=== PATIENT | female | born 1940 | race Caucasian/White ===

== ENCOUNTER → 2017-01-17 | Outpatient (CLI) | payer OTHER ==
[~2017-01-17] MED LIST: FLEXERIL PO; PERCOCET 5-3251 EACH PO; [UNRECOGNIZED DRUG - OTHER]
== END ==
LOC: RAD 14:15
DX: Z12.31 Encounter for screening mammogram for malignant neoplasm of breast (principal)

== ENCOUNTER → 2019-01-26 | Outpatient (CLI) | payer OTHER | LOC: NUC 10:24 | DX: N91.2 Amenorrhea, unspecified (principal); Z78.0 Asymptomatic menopausal state ==